=== PATIENT | male | born 1935 | race Caucasian/White ===

== ENCOUNTER 2018-01-04 23:55 | Emergency (ER) | payer MEDICARE, BC ==
[2018-01-05] MEDS: NITROGLYCERIN 0.4 MG TAB SL PRN ×4 (00:09→00:35)
[2018-01-05] MEDS ORDERED: ASPIRIN 81 MG CHEWABLE CTB ONE (00:09)
[2018-01-05] MEDS ORDERED: NITROGLYCERIN 0.4 MG TAB SL ONE (00:09)
[2018-01-05] MEDS ORDERED: ASPIRIN 81 MG CHEWABLE CTB PO STA (00:11)
[2018-01-05] MEDS ORDERED: SODIUM CHLORIDE 0.9% FLUSH 10 ML SOL IV PRN (00:11)
[2018-01-05 00:19] LABS: HEMATOCRIT 43 % (39-53); HEMOGLOBIN 14.7 gm/dl (13.5-17.7); MEAN CORPUSCULAR HEMOGLOBIN 30.7 pg (27.0-32.0); MEAN CORPUSCULAR HGB CONC 33.9 gm/dl (32.0-36.0); MEAN CORPUSCULAR VOLUME 91 fL (80-100)
[2018-01-05 00:33] LABS: ALBUMIN 3.1 gm/dl (3.4-5.0); ALKALINE PHOSPHATASE 81 IU/L (46-116); ALT 33 IU/L (14-63); AST 23 IU/L (15-37); BILIRUBIN,TOTAL 0.2 mg/dl (0.2-1.0); BLOOD UREA NITROGEN 27 mg/dl (7-18); CALCIUM 8.3 mg/dl (8.5-10.1); CARBON DIOXIDE 26.5 mEq/L (21-32); CHLORIDE 106 mMol/L (98-107); CREATINE KINASE 214 U/L (39-308); CREATININE 1.15 mg/dl (0.80-1.30); GLOM FILT RATE 61 mL/min (>60); GLUCOSE 115 mg/dl (74-106); POTASSIUM 4.4 mMol/L (3.5-5.1); SODIUM 141 mMol/L (136-145); TOTAL PROTEIN 6.5 gm/dl (6.4-8.2); TROP I < 0.017 ng/ml (0.000-0.056)
[2018-01-05 00:36] LABS: INR 0.96 (0.86-1.12)
[2018-01-05 00:41] LABS: BAND NEUTROPHILS % (MANUAL) 4 %; BASOPHILS % (MANUAL) 1 % (0-3); EOSINOPHILS % (MANUAL) 6 % (0-9); LYMPHOCYTES % (MANUAL) 39 % (10-50); MONOCYTES % (MANUAL) 6 % (0-12); NEUTROPHILS % (MANUAL) 44 % (37-80)
[2018-01-05] MEDS ORDERED: METOPROLOL TARTRATE 5 MG/5 ML SOL IV ONE ×4 (00:41→01:00)
[2018-01-05] MEDS ORDERED: HEPARIN SODIUM 5000 U/ML 25,000 U in DEXTROSE 250 ML 250 ML IV PRN (00:41)
[2018-01-05 00:42] LABS: NORMAL RBCS PRESENT
[2018-01-05] MEDS ORDERED: HEPARIN SODIUM 5000 U/ML SOL IV ONE (00:46)
[2018-01-05] MEDS ORDERED: HEPARIN SODIUM 5000 U/ML SOL ONE ×2 (00:48)
[2018-01-05] MEDS ORDERED: NITROGLYCERIN 5 MG/ML 50 MG in DEXTROSE 250 ML 250 ML IV PRN (01:18)
[2018-01-05 01:34] VITALS: TEMP 98.9
[2018-01-05 02:09] VITALS: O2SAT 95
[2018-01-05 02:44] VITALS: BP 153/83; PULSE 67; RESP 13
== END 2018-01-05 03:10 | disposition short-term general hospital (02) | DRG 313 ==
LOC: ED 23:55
DX: R07.9 Chest pain, unspecified (principal); I20.0 Unstable angina
CPT/HCPCS: 36415; 71045; 80053; 82550; 84484; 85007; 85027; 85610; 85730; 93005; 96365; 96366; 96374; 96375; 99070; 99283; 99285; J1644; A9270-GY; J3490